=== PATIENT | male | born 1990 | race Caucasian/White ===

== ENCOUNTER → 2022-04-25 | Emergency (ER) | payer MEDICAID ==
[~2022-04-25] VITALS: Ht 167.6 cm; Wt 77.1 kg
[~2022-04-25] MED LIST: NAPR-1192 PO
[2022-04-25 09:30] VITALS: BP 127/77
--- NOTE | 2022-04-25 10:09 | NUR ---
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
--- NOTE | 2022-04-25 11:46 | NUR ---
PT D/C TO HOME. NO IV ACCESS. PT WITH L FOOT SPLINT PLACED MY EMT. D/C INSTRUCTIONS GIVEN TO PT. PT STABLE. LEFT VIA WHEELCHAIR.
== END | disposition home or self-care (01) ==
LOC: ER 09:33
DX: G89.18 Other acute postprocedural pain (principal); M25.572 Pain in left ankle and joints of left foot; Z59.00 Homelessness unspecified; Z79.1 Long term (current) use of non-steroidal anti-inflammatories (NSAID)
CPT/HCPCS: 73610-TC